=== PATIENT | male | born 1980 | race Caucasian/White ===

== ENCOUNTER 2021-03-11 10:51 | Emergency (ER) | payer BC, SELFPAY ==
[2021-03-11] VITALS (8 sets, daily range): BP systolic 123–147; BP diastolic 79–93; PULSE 60–77; RESP 16–20; TEMP 36.5; O2SAT 97–99; BMI 23.0
--- NOTE | 2021-03-11 10:57 | CT_ITS ---
PROCEDURE INFORMATION: Exam: CT Angiography Neck With Contrast Exam date and time: 03/11/2021 10:57 AM Age: 40 years old Clinical indication: Numbness; Additional info: Facial weakness and numbness// iv tubing busted half way through the scan-- unable to get a good clear cta scan and unable to get a new iv started -- head without also sent TECHNIQUE: Imaging protocol: Computed tomography angiography of the neck with contrast. 3D rendering (Not supervised by radiologist): MIP and/or 3D reconstructed images were created by the technologist. Radiation optimization: All CT scans at this facility use at least one of these dose optimization techniques: automated exposure control; mA and/or kV adjustment per patient size (includes targeted exams where dose is matched to clinical indication); or iterative reconstruction. Contrast material: ISOVUE 370; Contrast volume: 75 ml; Contrast route: INTRAVENOUS (IV); COMPARISON: CT HEAD/BRAIN WO CON 03/11/2021 11:09 AM FINDINGS: Limitations: Limited evaluation. No intraluminal contrast is identified. Bones/joints: No acute fracture. Soft tissues: Normal. No significant soft tissue swelling. IMPRESSION: Technically limited CT examination of the neck due to absence of contrast. Repeat examination is recommended as clinically warranted. REFERENCES: NASCET CRITERIA. The degree of internal carotid artery stenosis is based on NASCET criteria. Normal is no stenosis. Mild is less than 50% stenosis. Moderate is 50-69% stenosis. Severe is 70% to 99% stenosis. Total occlusion is no detectable patent lumen.
--- NOTE | 2021-03-11 10:57 | CT_ITS ---
PROCEDURE INFORMATION: Exam: CT Angiography Head With Contrast, Arteriography Exam date and time: 03/11/2021 10:57 AM Age: 40 years old Clinical indication: Other: Right side facial numbness; Patient HX: Right sided facial numbness. ; Additional info: Facial weakness and numbness TECHNIQUE: Imaging protocol: Computed tomography angiography of the head with contrast. Exam focused on the arteries. 3D rendering (Not supervised by radiologist): MIP and/or 3D reconstructed images were created by the technologist. Radiation optimization: All CT scans at this facility use at least one of these dose optimization techniques: automated exposure control; mA and/or kV adjustment per patient size (includes targeted exams where dose is matched to clinical indication); or iterative reconstruction. Contrast material: ISOVUE 370; Contrast volume: 100 ml; Contrast route: INTRAVENOUS (IV); COMPARISON: CT HEAD/BRAIN WO CON 03/11/2021 11:09 AM FINDINGS: ANTERIOR CIRCULATION: Right internal carotid artery: Unremarkable. Intracranial segment is patent with no significant stenosis. No aneurysm. Right middle cerebral artery: Unremarkable. No occlusion or significant stenosis. No aneurysm. Right anterior cerebral artery: No acute findings. A developmentally small A1 segment of the right anterior cerebral artery, compared with left. A patent anterior communicating artery and large left A1 segment, likely partially supplying the right A2 segment. No occlusion or significant focal stenosis. No aneurysm. Left internal carotid artery: Unremarkable. Intracranial segment is patent with no significant stenosis. No aneurysm. Left middle cerebral artery: Unremarkable. No occlusion or significant stenosis. No aneurysm. Left anterior cerebral artery: Unremarkable. No occlusion or significant stenosis. No aneurysm. 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 No occlusion or high-grade focal stenosis. No aneurysm. Left vertebral artery: Dominant left vertebral artery. No occlusion or significant stenosis. No aneurysm. Basilar artery: Unremarkable. No occlusion or significant stenosis. No aneurysm. Right posterior cerebral artery: No acute findings. No occlusion or significant stenosis. No aneurysm. 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 Left posterior cerebral artery: Unremarkable. No occlusion or significant stenosis. No aneurysm. Brain: No definite mass, mass effect, or midline shift. Cerebral ventricles: No ventriculomegaly. Bones/joints: No acute skull fracture. No lytic lesions. Soft tissues: There are no soft tissue masses or fluid collections. Minimal scalp calcification. IMPRESSION: 1. No large vessel stenosis or occlusion. 2. No aneurysm of the [id number]. 3. Developmental asymmetries, as above.
--- NOTE | 2021-03-11 10:57 | PC.NURSE ---
notified rad of CT head, stroke protocol
--- NOTE | 2021-03-11 10:57 | CT_ITS ---
PROCEDURE INFORMATION: Exam: CT Head Without Contrast Exam date and time: 03/11/2021 10:57 AM Age: 40 years old Clinical indication: Numbness / parasthesia; Left; Additional info: Facial weakness and numbness// also did cta head and neck however the iv tubing split with limited contrast-- unable to get new iv for scan- TECHNIQUE: Imaging protocol: Computed tomography of the head without contrast. 3D rendering (Not supervised by radiologist): MIP and/or 3D reconstructed images were created by the technologist. Radiation optimization: All CT scans at this facility use at least one of these dose optimization techniques: automated exposure control; mA and/or kV adjustment per patient size (includes targeted exams where dose is matched to clinical indication); or iterative reconstruction. Other technique: STROKE PROTOCOL was implemented. COMPARISON: No relevant prior studies available. FINDINGS: Brain: Normal. No hemorrhage. Unremarkable white matter. No mass effect. Cerebral ventricles: No ventriculomegaly. Paranasal sinuses: Visualized sinuses are unremarkable. No fluid levels. Mastoid air cells: Visualized mastoid air cells are well aerated. Bones/joints: No acute fracture. Soft tissues: Unremarkable. IMPRESSION: No acute intracranial abnormality. ASSESSMENT: ASPECTS ([place] Stroke Program Early CT Score) is 10.
[2021-03-11 12:08] LABS: Basophils # 0.1 K/mm3 (0-0.2); Basophils % 1.3 % (0.1-2.0); Eosinophils # 0.1 K/mm3 (0.0-0.4); Eosinophils % 0.8 % (0.1-12.0); Hematocrit 47.5 % (42.0-52.0); Hemoglobin 15.9 g/dL (14.1-18.0); Lymphocytes # 2.1 K/mm3 (0.7-4.5); Mean Corpuscular HGB Conc 33.6 g/dL (31.8-35.4); Mean Corpuscular Hemoglobin 30.2 pg (27.0-31.2); Mean Platelet Volume 7.7 fl (7.4-10.4); Monocytes # 0.5 K/mm3 (0.1-1.0); Monocytes % 7.4 % (1.7-9.3); Neutrophils # 3.4 K/mm3 (1.8-7.8); Neutrophils % 55.5 % (37.0-80.0); Platelet Count 366 K/mm3 (142-424); Red Blood Count 5.28 M/mm3 (4.60-6.20); Red Cell Distribution Width 13.1 % (11.5-17.5)
[2021-03-11 12:09] LABS: Chloride 104 mmol/L (98-107)
[2021-03-11 12:10] LABS: Potassium 3.8 mmoL/L (3.5-5.1); Sodium 139 mmol/L (136-145)
[2021-03-11 12:13] LABS: Anion Gap 10.8 mEq/L (5-15); Blood Urea Nitrogen 9 mg/dl (9-20); Carbon Dioxide 28 mmol/L (22.0-30.0); Creatinine Clearance Estimated 115 mL/min (50-200); Estimated Glomerular Filt Rate 93 ml/min (>60); GFR (African American) 113 ML/MIN (>60); Glucose 104 mg/dl (74-100)
[2021-03-11 12:26] LABS: Activated Partial Thrombo Time 28.7 seconds (22.8-30.6); INR 0.96 (0.9-1.1); Prothrombin Time 10.9 seconds (10.1-12.5); Troponin I < 0.01 ng/ml (0.00-0.034)
--- NOTE | 2021-03-11 13:15 | PC.NURSE ---
when pt returned from CT scan, rad staff alerted apolinar and CARMENZA VAUGHAN that pt IV blew during the angio studies. upon speaking with kisha in radiology at this time when trying to see the ETA of results of scans. After much discussion and explanation Kisha explains that the CT scanner stopped the scan when the IV blew during contrast infusion, states she was around the level of the pts carotids. This was not initially was CARMENZA VAUGHAN thought rad staff was explaining to her when pt came back from CT. CARMENZA VAUGHAN states she is going to reorder CTA of head, notified rad staff of this order on pt, spoke with kisha.
--- NOTE | 2021-03-11 13:38 | HMH.ITSTN ---
ON FIRST SCAN OF ANGIO HEAD AND NECK THE IV TUBING BURST AND LITTLE CONTRAST WAS ON SCAN AND SCAN WAS STOPPED DUE TO CONTRAST NOT WORKING- I ADVISED PHYSICIAN WHEN TAKING PATIENT BACK THAT IV BLEW AND DID NOT GET A GOOD SCAN- DOCUMENTED ON MY PAPERWORK // DR ORDERED AN ADDITIONAL SCAN ONCE NEW IV WAS STARTED AND ONLY WANTS THE CTA HEAD REDONE
[2021-03-11 14:53] LABS: Troponin I < 0.01 ng/ml (0.00-0.034)
--- NOTE | 2021-03-11 15:15 | HMH.EDGENADL ---
ED Disposition Clinical Impression: Rapp's palsy Disposition: Home, Self-Care Condition on Discharge: Good Instructions: DI for [place] Palsy Additional Instructions: Patient will follow up with primary care physician in 2-3 days for further management. Please utilize the prednisone and acyclovir as prescribed daily for one week. You have also been prescribed artificial tears and eye patch to help with lubrication of eye and to prevent corneal ulcerations. Please return to ED for any concerning symptoms such as headache, spreading of numbness/weakness, difficulty ambulating, chest pain, difficulty breathing, or any other concerning symptoms. Prescriptions: Acyclovir 400 mg PO 5XDAY #35 tab Transmission Status: Received by [id number] Dextran 70/Hypromellose/Pf [Artificial Tears Drops] 1 each OP 5XDAY #1 each Transmission Status: Received by [id number] predniSONE [Prednisone 50mg Tab] 50 mg PO DAILY #7 tab Transmission Status: Received by [id number] Referrals: Tutu Perez MD [Primary Care Provider] - Time of Disposition: 11:00 - Critical Care Critical Care Time: Yes Attestation: On 03/11/21, the high probability of a clinically significant, sudden or life threatening deterioration of the following system(s) required my full and direct attention, intervention and personal management. The time I documented below is in addition to time spent performing reported procedures but includes the following listed in this critical care notation. Vital system(s) involved:: Central Nervous System My critical care processes included: Assessment & monitoring of V/S, Initial and Re-exams, Data Review/Interpretation, Coordinating Care, Medication Orders and management Medical Decision Making - Medical Records Medical records reviewed: Yes: I reviewed the patient's medical records. - Juan Carlos Inquiry Pt receiving controlled substance: No Vital Signs: 03/11/21 10:51 03/11/21 11:59 03/11/21 12:30 Temperature 97.7 F Temperature Source Oral Pulse Rate 60 60 Pulse Rate [Right Radial] 68 Respiratory Rate 16 16 20 Blood Pressure 130/88 128/89 Blood Pressure [Right Arm] 147/93 H Blood Pressure Mean 101 99 Blood Pressure Mean [Right Arm] 111 Blood Pressure Source [Right Arm] Automatic Cuff Blood Pressure Position Blood Pressure Position [Right Arm] Sitting 02 Sat by Pulse Oximetry 99 98 98 Oxygen Delivery Method Room Air Room Air 03/11/21 13:00 03/11/21 13:30 03/11/21 14:30 Temperature Temperature Source Pulse Rate 64 77 72 Pulse Rate [Right Radial] Respiratory Rate 20 18 18 Blood Pressure 128/85 123/85 129/80 Blood Pressure [Right Arm] Blood Pressure Mean 95 92 88 Blood Pressure Mean [Right Arm] Blood Pressure Source [Right Arm] Blood Pressure Position Blood Pressure Position [Right Arm] 02 Sat by Pulse Oximetry 97 99 97 Oxygen Delivery Method 03/11/21 15:00 03/11/21 15:44 Temperature 97.7 F Temperature Source Oral Pulse Rate 69 69 Pulse Rate [Right Radial] Respiratory Rate 20 18 Blood Pressure 123/79 123/79 Blood Pressure [Right Arm] Blood Pressure Mean 88 Blood Pressure Mean [Right Arm] Blood Pressure Source [Right Arm] Blood Pressure Position Sitting Blood Pressure Position [Right Arm] 02 Sat by Pulse Oximetry 97 Oxygen Delivery Method Room Air - Lab Data Lab results reviewed: Yes: I reviewed the patient's lab results. Lab Results 03/11/21 11:57: WBC 6.0, RBC 5.28, Hgb 15.9, Hct 47.5, MCV 90.0, MCH 30.2, MCHC 33.6, RDW 13.1, Plt Count 366, MPV 7.7, Neut % (Auto) 55.5, Lymph % (Auto) 35.0, [place] % (Auto) 7.4, Eos % (Auto) 0.8, Baso % (Auto) 1.3, Neut # (Auto) 3.4, Lymph # (Auto) 2.1, [place] # (Auto) 0.5, Eos # (Auto) 0.1, Baso # (Auto) 0.1 03/11/21 11:57: PT 10.9, INR 0.96, APTT 28.7 03/11/21 11:57: Sodium 139, Potassium 3.8, Chloride 104, Carbon Dioxide 28, Anion Gap 10.8, BUN 9, Creatinine 0.90, Estimated Creat C
[2021-03-14 15:30] LABS: Chol/HDL Ratio 6.1 (1-3.5); Cholesterol 189 mg/dl (140-200); HDL Cholesterol 31 mg/dl (40-60); Triglycerides 95 mg/dl (30-150); VLDL Cholesterol 19 mg/dL (0-40)
== END 2021-03-11 15:44 | disposition home or self-care (01) ==
PROVIDERS: Emergency Provider Student in an Organized Health Care Education/Training Program; PCP Internal Medicine Adolescent Medicine
DX: G51.0 Bell's palsy (principal)
CPT/HCPCS: 36415; 70450; 70496; 70498; 80048; 80061; 84484; 85025; 85610; 85730; 99283; Q9967

== ENCOUNTER → 2021-06-12 14:44 | Outpatient (CLI) | payer BC, SELFPAY | PROVIDERS: PCP Internal Medicine Adolescent Medicine; Visit Provider Nurse Practitioner | DX: U07.1 COVID-19 (principal) | CPT/HCPCS: C9803; U0003; U0005 ==